=== PATIENT | female | born 1955 | race Caucasian/White ===

== ENCOUNTER 2019-07-01 06:39 | Day surgery (SDC) | payer BC ==
[~2019-07-01 06:39] MED LIST: Lactated Ringers 1,000 ML IV SCH
--- NOTE | 2019-07-01 07:19 | PCM.PREANE ---
Preanesthetic Assessment - Anesthesia/Transfusion/Family Hx Anesthesia History: Prior Anesthesia Without Reaction Family History of Anesthesia Reaction: No Transfusion History: Prior Transfusion Without Reaction Intubation History: Unknown - Review of Systems General: No Symptoms Pulmonary: No Symptoms Cardiovascular: No Symptoms Gastrointestinal: No Symptoms Neurological: No Symptoms Other: Reports: None - Physical Assessment Vital Signs: Last Vital Signs Temp 36.9 C 07/01/19 06:54 Pulse 69 07/01/19 06:54 Resp 15 07/01/19 06:54 BP 129/81 07/01/19 06:54 Pulse Ox 97 07/01/19 06:54 Height: 5 ft 5 in Weight: 73.482 kg ASA Class: 2 Mental Status: Alert & Oriented x3 Airway Class: Mallampati = 2 Dentition: Reports: Normal Dentition Thyro-Mental Finger Breadths: 3 Mouth Opening Finger Breadths: 3 ROM/Head Extension: Full Lungs: Clear to Auscultation, Normal Respiratory Effort Cardiovascular: Regular Rate, Regular Rhythm - Allergies Allergies/Adverse Reactions: Allergies Allergy/AdvReac Type Severity Reaction Status Date / Time No Known Allergies Allergy Verified 06/26/19 10:22 - Blood Blood Available: No - Anesthesia Plan Pre-Op Medication Ordered: None - Acknowledgements Anesthesia Type Planned: General Anesthesia Pt an Appropriate Candidate for the Planned Anesthesia: Yes Alternatives and Risks of Anesthesia Discussed w Pt/Guardian: Yes Pt/Guardian Understands and Agrees with Anesthesia Plan: Yes PreAnesthesia Questionnaire HEENT History: Reports: Other (See Below) Other HEENT History: wears glasses Cardiovascular History: Reports: Arrhythmia Other Cardiovascular History: hx of tachycardia, since startind dialtiazem several years ago - none Respiratory History: Reports: None Gastrointestinal History: Reports: None, Other (See Below) (h/o gastric ulcer) Genitourinary History: Reports: Renal Calculus [employer]IVER History: Reports: Musculoskeletal History: Reports: None Neurological History: Reports: Other (See Below) Other Neuro History: hx of migranes, not for several years Psychiatric History: Reports: None Endocrine/Metabolic History: Reports: None Hematologic History: Reports: None Other Hematologic History: unsure, "may have had transfusion with my c/section" Immunologic History: Reports: None Oncologic (Cancer) History: Reports: None Dermatologic History: Reports: None - Past Surgical History Head Surgeries/Procedures: Reports: None HEENT Surgical History: Reports: Tonsillectomy Cardiovascular Surgical History: Reports: None Respiratory Surgical History: Reports: None GI Surgical History: Reports: Appendectomy, Colonoscopy Female Surgical History: Reports: Section, Hysterectomy, Lithotripsy /ESWL Endocrine Surgical History: Reports: None Neurological Surgical History: Reports: None Musculoskeletal Surgical History: Reports: None Oncologic Surgical History: Reports: None Dermatological Surgical History: Reports: None - SUBSTANCE USE Smoking Status *Q: Never Smoker Recreational Drug Use History: No - HOME MEDS Home Medications: Home Meds Aspirin [Adult Low Dose Aspirin EC] 81 mg PO DAILY 02/23/14 [History] Diltiazem [Cardizem] 240 mg PO BEDTIME 02/23/14 [History] FA/Lycopene/Lut/MV,Ca,Iron,Min [Centrum] 1 tab PO DAILY 02/23/14 [History] - CURRENT (IN HOUSE) MEDS Current Meds: Current Medications Hydrocodone Bitart/Acetaminophen ([place] 325-5 Mg) 1 - 2 tab PO Q4H PRN PRN Reason: Pain Cefazolin Sodium/Dextrose 1 gm (/ Premix) 50 mls @ 100 mls/hr IV ONCALL GALO Lactated Ringer's (Ringers, Lactated) 1,000 mls @ 100 mls/hr IV ASDIRECTED [facility] Last Admin: 07/01/19 07:14 Dose: 100 mls/hr
[2019-07-01] MEDS ORDERED: Lidocaine 1% 20 ML MDV ONE (07:33)
[2019-07-01] MEDS ORDERED: Propofol 200 MG/20 ML SDV ONE (07:48)
[2019-07-01] MEDS ORDERED: fentaNYL 100 MCG/2 ML SDV ONE (07:48)
[2019-07-01] MEDS ORDERED: Acetaminophen/HYDROcodone 325-5 MG Tab PO PRN (08:00)
[2019-07-01] MEDS ORDERED: ceFAZolin 1 GM in Premix Bag 1 BAG IV SCH (08:00)
[2019-07-01] MEDS ORDERED: Ondansetron 4 MG/2 ML SDV ONE (08:20)
[2019-07-01] MEDS ORDERED: Dexamethasone 4 MG/ML 5 ML MDV ONE (08:20)
[2019-07-01] MEDS ORDERED: Albuterol 0.083% 2.5 MG/3 ML Neb Soln NEB PRN (08:38)
[2019-07-01] MEDS ORDERED: 50% Dextrose in Water 50 ML Syringe IVPUSH PRN (08:38)
[2019-07-01] MEDS ORDERED: Naloxone 0.4 MG/ML Syringe IVPUSH PRN (08:38)
[2019-07-01] MEDS ORDERED: EPINEPHrine 1:10,000 1 MG/10 ML Syringe IVPUSH PRN (08:38)
[2019-07-01] MEDS ORDERED: Atropine 0.1 MG/ML 10 ML Syringe IVPUSH PRN ×2 (08:38)
--- NOTE | 2019-07-01 08:59 | PCM.OPNOTE ---
- General Post-Op/Procedure Note Date of Surgery/Procedure: 07/01/19 Operative Procedure(s): L knee scope with PMM Post-Op Diagnosis: DJD left knee, left knee medial meniscus tear Anesthesia Technique: General LMA Primary Surgeon: Lakia Loza Program Evaluator: Genet Lewis in mLs: 5 Condition: Good Free Text/Narrative:: tt=14 min #[id number]
[2019-07-01] MEDS ORDERED: fentaNYL 100 MCG/2 ML SDV IVPUSH PRN (09:02)
[2019-07-01] MEDS ORDERED: HYDROmorphone 1 MG/ML Syringe IVPUSH ONE (09:03)
[2019-07-01] MEDS: fentaNYL 100 MCG/2 ML SDV IVPUSH PRN ×2 (09:10→09:20)
[2019-07-01] MEDS ORDERED: HYDROmorphone 2 MG/ML Syringe ONE (09:41)
[2019-07-01] MEDS ORDERED: Acetaminophen 1,000 MG in Premix Bag 1 BAG IV ONE (10:16)
--- NOTE | 2019-07-01 10:33 | PCM.POSTAN ---
POST ANESTHESIA ASSESSMENT - MENTAL STATUS Mental Status: Alert, Oriented - VITAL SIGNS Vital Signs: Last Vital Signs Temp 36.2 C 07/01/19 08:50 Pulse 54 L 07/01/19 10:30 Resp 12 07/01/19 10:30 BP 117/69 07/01/19 10:30 Pulse Ox 95 07/01/19 10:30 - RESPIRATORY Respiratory Status: Respiratory Rate WNL, Airway Patent, O2 Saturation Stable - CARDIOVASCULAR CV Status: Pulse Rate WNL, Blood Pressure Stable - GASTROINTESTINAL GI Status: No Symptoms - PAIN Pain Score: 0 - POST OP HYDRATION Hydration Status: Adequate & Stable - OBSERVATIONS Free Text/Narrative:: no anesthesia problems
--- NOTE | 2019-07-01 11:06 | OR ---
SURGEON: Lakia Loza MD DATE OF PROCEDURE: 07/01/2019 PREOPERATIVE DIAGNOSES: 1. Left knee medial meniscus tear. 2. Left knee degenerative joint disease. POSTOPERATIVE DIAGNOSES: 1. Left knee medial meniscus tear. 2. Left knee degenerative joint disease. PROCEDURE: Left knee arthroscopy with partial medial meniscectomy. PRIMARY SURGEON: Lakia Loza MD. OUTPATIENT COORDINATOR: Genet Lewis PA-C. ANESTHESIA: General. ESTIMATED BLOOD LOSS: 5 mL. TOURNIQUET TIME: 14 minutes. COMPLICATIONS: None. DVT PROPHYLAXIS: Not indicated. IMPLANTS USED: None. BRIEF HISTORY: Chaparrita is a 63-year-old female who has had complaint of progressive left knee pain. An MRI did confirm a tear of the medial meniscus. Due to her lack of response to conservative treatment, I did recommend surgical intervention. The risks and goals of the procedure were discussed with the patient and were documented preoperatively. She agreed to proceed. DESCRIPTION OF PROCEDURE: The patient was properly identified and brought to the operating room. She was transferred from the OR cart and placed on the operating table in supine position. General anesthesia was administered. After adequate anesthesia was obtained, a well-padded tourniquet was applied to the left lower extremity. The left lower extremity was then prepped in standard fashion using ChloraPrep solution. It was then sterilely draped. A time-out was performed to ensure correct site and procedure. Preoperative antibiotics were given. The surgical site had been marked preoperatively. An Esmarch was used to exsanguinate the left lower extremity and the tourniquet was inflated to 250 mmHg. A lateral portal arthrotomy was established. Blunt trocar and cannula were introduced into the suprapatellar pouch. Camera, inflow, and outflow were assembled. The suprapatellar pouch showed no loose bodies or synovitis. The patellofemoral joint was then visualized. 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 The trochlear groove also showed diffuse grade 3 to grade 4 degenerative changes. The patella appeared to track centrally. I then extended down the lateral and medial gutter. No loose bodies were identified. I then entered the medial compartment. A medial portal arthrotomy was established. A blunt probe was inserted. A radial tear along the posterior horn of the medial meniscus was probed and found to be unstable. Using a combination of biters and shaver, this was resected back to a stable remnant. It was again probed and found to be stable. The joint surfaces were also inspected. Diffuse grade 2 to grade 3 chondromalacia was noted throughout the medial compartment. No loose cartilage flaps were noted. I then entered the notch. Both the ACL and PCL were visualized and probed and found to be intact. I then entered the lateral compartment. Minor degenerative fraying was noted along the central portion of the meniscus. The meniscus was probed and found to be stable. There was an area measuring approximately 10 mm x 10 mm over the posterior medial aspect of the lateral tibial plateau, which did show grade 4 chondromalacia. There was quite a bit of softening of the cartilage surrounding this, however, no loose fragments were appreciated. Grade 2 degenerative changes were noted along the lateral femoral condyle. I then returned to the patellofemoral joint. The loose pieces of cartilage from the undersurface of the patella were debrided by performing a chondroplasty. Instruments were then removed from the knee. The portal sites were closed with 3-0 nylon. 1% Lidocaine was injected along the portal tracts. Xeroform gauze was placed over the wound and a bulky dressing was applied. The tourniquet was then deflated. She was awakened from her anesthetic and transferred back to the operating room cart. She was brought to recovery room in stable condition. All needle and sponge counts were correct. YENI / MAY /[id number]
--- NOTE | 2019-07-01 13:06 | PCM48HPAN ---
Post Anesthesia Note - EVALUATION WITHIN 48HRS OF ANESTHETIC Vital Signs in Normal Range: Yes Patient Participated in Evaluation: Yes Respiratory Function Stable: Yes Airway Patent: Yes Cardiovascular Function Stable: Yes Hydration Status Stable: Yes Pain Control Satisfactory: Yes Nausea and Vomiting Control Satisfactory: Yes Mental Status Recovered: Yes Vital Signs: Last Vital Signs Temp 36.6 C 07/01/19 10:40 Pulse 56 L 07/01/19 11:55 Resp 14 07/01/19 11:55 BP 124/70 07/01/19 11:55 Pulse Ox 96 07/01/19 11:55 - COMMENTS/OBSERVATIONS Free Text/Narrative:: no anesthesia problems
[2019-07-01 13:26] VITALS: BP 128/74
== END 2019-07-01 13:57 | disposition home or self-care (01) ==
LOC: MW.SDS 06:39
PROVIDERS: ATTEND Orthopaedic Surgery
DX: S83.242A Other tear of medial meniscus, current injury, left knee, initial encounter (principal); M17.12 Unilateral primary osteoarthritis, left knee; M94.262 Chondromalacia, left knee; I10 Essential (primary) hypertension; Z79.899 Other long term (current) drug therapy; Z79.82 Long term (current) use of aspirin
CPT/HCPCS: 29881; J0131; J0690; J1100; J1170; J2001; J2405; J2704; J3010; J7120; 01400; 88304

== ENCOUNTER 2022-03-01 08:29 | Day surgery (SDC) | payer BC ==
[2022-03-01] MEDS ORDERED: Propofol 200 MG/20 ML SDV ONE (09:07)
[2022-03-01] MEDS ORDERED: Lactated Ringers 1,000 ML IV SCH (09:30)
[2022-03-01] MEDS ORDERED: fentaNYL 100 MCG/2 ML SDV ONE (10:05)
[2022-03-01 11:31] VITALS: BP 129/62; PULSE 78
== END 2022-03-01 11:35 | disposition home or self-care (01) ==
LOC: MW.SDS 08:29
PROVIDERS: ATTEND Surgery
DX: Z12.11 Encounter for screening for malignant neoplasm of colon (principal); Z86.010 Personal history of colon polyps; G43.909 Migraine, unspecified, not intractable, without status migrainosus; Z79.899 Other long term (current) drug therapy; Z90.49 Acquired absence of other specified parts of digestive tract; Z98.890 Other specified postprocedural states
CPT/HCPCS: 45378; J2704; J3010; J7120; 00812

== ENCOUNTER 2023-03-28 12:39 | Emergency (ER) | payer OTHER, BC ==
[2023-03-28] MEDS ORDERED: Morphine 4 MG/ML Syringe IVPUSH ONE (12:51)
[2023-03-28] MEDS ORDERED: Ondansetron 4 MG/2 ML SDV IVPUSH ONE (12:52)
[2023-03-28 14:57] VITALS: BP 138/81; PULSE 60
== END 2023-03-28 15:15 | disposition home or self-care (01) ==
LOC: MW.ED 12:39
DX: S32.592A Other specified fracture of left pubis, initial encounter for closed fracture (principal); S00.03XA Contusion of scalp, initial encounter; V23.49XA Other motorcycle driver injured in collision with car, pick-up truck or van in traffic accident, initial encounter; Y92.410 Unspecified street and highway as the place of occurrence of the external cause
CPT/HCPCS: 70450; 73502; 96374; 96375; 99285; J2270; J2405

== ENCOUNTER 2025-03-19 09:58 | Day surgery (SDC) | payer BC, OTHER ==
[~2025-03-19 09:58] MED LIST changes: +Albuterol 0.083% 2.5 MG/3 ML Neb Soln NEB PRN; +HYDROmorphone 1 MG/ML Syringe IVPUSH PRN; -Lactated Ringers 1,000 ML IV SCH; +Metoclopramide 10 MG/2 ML SDV IVPUSH PRN; +Morphine 2 MG/ML SYRINGE IVPUSH PRN; +Naloxone 0.4 MG/ML SDV IVPUSH PRN; +Ondansetron 4 MG/2 ML SDV IVPUSH PRN; +Phenylephrine HCl In 0.9% NaCl 1 MG/10 ML Syringe IVPUSH PRN; +ceFAZolin 2 GM in Water For Injection, Sterile 20 ML IVPUSH ONE; +fentaNYL 50 MCG/ML SDV IVPUSH PRN
[2025-03-19] MEDS ORDERED: Bupivacaine 0.5%/EPINEPHrine 1:200,000 30 ML SDV ONE (10:00)
[2025-03-19] MEDS ORDERED: fentaNYL 250 MCG/5 ML SDV ONE (10:19)
[2025-03-19] MEDS ORDERED: Propofol 200 MG/20 ML SDV ONE ×2 (10:19→12:23)
[2025-03-19] MEDS ORDERED: propofoL 500 MG/50 ML 50 ML ONE (10:19)
[2025-03-19] MEDS ORDERED: Ketamine HCL/NACL, ISO-OSM 50 MG/5 ML Syringe ONE (10:19)
[2025-03-19] MEDS: Lactated Ringers 1,000 ML IV SCH (10:32)
[2025-03-19] MEDS ORDERED: HYDROmorphone 1 MG/ML Syringe ONE ×2 (12:06→12:14)
[2025-03-19] MEDS ORDERED: Dexamethasone 4 MG/ML 5 ML MDV ONE (12:14)
[2025-03-19] MEDS ORDERED: Ondansetron 4 MG/2 ML SDV ONE (12:14)
[2025-03-19] MEDS ORDERED: Ropivacaine 0.5% 5 MG/ML 30 ML SDV ONE (13:06)
[2025-03-19] MEDS ORDERED: dexmedeTOMIDine HCl 200 MCG/2 ML SDV ONE (13:07)
[2025-03-19 15:11] VITALS: BP 138/86; PULSE 66
== END 2025-03-19 15:50 | disposition home or self-care (01) ==
LOC: MW.SDS 09:58
PROVIDERS: ATTEND Orthopaedic Surgery
DX: S83.231A Complex tear of medial meniscus, current injury, right knee, initial encounter (principal); I10 Essential (primary) hypertension; Z79.899 Other long term (current) drug therapy; X58.XXXA Exposure to other specified factors, initial encounter
CPT/HCPCS: 29881; J1100; J1171; J2405; J2704; J2795; J3010; J7120; 01400; 64447; J3490